=== PATIENT | female | born 1990 | race Caucasian/White ===

== ENCOUNTER 2023-03-07 20:27 | Inpatient (IN) | payer MEDICAID, SELFPAY ==
[2023-03-07 20:31] VITALS: BP 134/98; PULSE 107; RESP 18; TEMP 36.9; O2SAT 98; BMI 22.1
[2023-03-07 21:31] VITALS: BP 115/84; PULSE 74; RESP 16; TEMP 36.7; O2SAT 100
--- NOTE | 2023-03-07 21:42 | HP.PCM.HOS_ITS ---
HPI - General General Date of Admission: 03/07/23 Date of Service: 03/07/23 Chief Complaint: EtOH abuse, detox request. HPI Narrative The patient is a 32 y/o F w/ PMHx: Alcoholic Cirrhosis w/ chronically elevated LFTs/Hyperbilirubinemia/thrombocytopenia, Chronic anemia, Tobacco use who presents to the [facility] on 03/07/23 w/ noted ongoing persistent alcohol abuse with replapse over the last 6 months following a relationship breakup with impetus this evening for presentation for alcohol withdrawal treatment following last EtOH intake approximately 1 hour prior to initial ED arrival with no marked alcohol withdrawal symptoms upon initial ED arrival but significant interest in obtaining sober status. Initial work-up in the ED included T98.5, heart rate 107, BP 130/98, respiratory rate 18, 98% on room air, CBC with WC 6.2, hemoglobin 11.2, platelet 122 without marked shift, coags with INR 1.3, PT 15.9, CMP with sodium 135, potassium 2.7, chloride 97, BUN/creatinine 5/1.27, glucose 107, T. bili 4.90, D bili 3.74, AST/ALT 301/93, alk phos 284, urinalysis with no evidence of UTI, negative testing, UDS with positive benzodiazepines and cocaine, ethyl alcohol level 280. In the ED upon evaluation she notes onset of alcohol withdrawal symptoms including mild tremors and notes that she does have history of significant hallucinations and delirium when she withdrawals. [facility] Medical History (Updated 03/08/23 @ 01:[address] Martha Birch MD) Alcohol abuse Alcoholic cirrhosis Chronic anemia Hyperbilirubinemia Polysubstance abuse Thrombocytopenia Tobacco use Transaminitis Home Medications albuterol 90 mcg/actuation aerosol inhaler 90 mcg inhalation Q6H PRN sob 03/07/23 [History Last Taken Unknown] carvedilol 3.125 mg tablet 3.125 mg PO Q12H 03/07/23 [History Last Taken Unknown] cephalexin 500 mg capsule 500 mg PO Q8H 03/07/23 [History Last Taken Unknown] chlordiazepoxide HCl 10 mg capsule 10 mg PO Q8H 03/07/23 [History Last Taken Unknown] diclofenac sodium 75 mg tablet,delayed release 75 mg PO Q12H 03/07/23 [History Last Taken Unknown] folic acid 1 mg tablet 1 mg feeding tube DAILY 03/07/23 [History Last Taken Unknown] furosemide 40 mg tablet 60 mg PO DAILY 03/07/23 [History Last Taken Unknown] gabapentin 400 mg capsule 400 mg PO Q8H 03/07/23 [History Last Taken Unknown] hydroxyzine HCl 25 mg tablet 25 mg PO Q12H PRN 03/07/23 [History Last Taken Unknown] lactulose 10 gram/15 mL oral solution 15 ml PO DAILY 03/07/23 [History Last Taken Unknown] lidocaine 4 % topical patch (Lidocaine Pain Relief) 2 patch topical Q24H 03/07/23 [History Last Taken Unknown] nicotine 21 mg/24 hr daily transdermal patch 1 patch transdermal Q24H 03/07/23 [History Last Taken Unknown] oxycodone-acetaminophen 5 mg-325 mg tablet 1 tab PO Q6H PRN pain 03/07/23 [History Last Taken Unknown] potassium chloride 20 mEq tablet,extended release(part/cryst) 20 meq PO DAILY 03/07/23 [History Last Taken Unknown] rifaximin 550 mg tablet (Xifaxan) 550 mg PO DAILY 03/07/23 [History Last Taken Unknown] sodium bicarbonate 650 mg tablet 650 mg PO BID 03/07/23 [History Last Taken Unknown] spironolactone 100 mg tablet 150 mg PO DAILY 03/07/23 [History Last Taken Unknown] Allergy/AdvReac Type Severity Reaction Status Date / Time No Known Allergies Allergy Verified 03/07/23 20:31 Family History (Updated 03/08/23 @ 01:[address] Martha Birch MD) Mother CVA (cerebral vascular accident) Heart disease Hypertension other (She does not know her father nor her paternal family history.) Surgical History (Updated 03/08/23 @ 01:[address] Martha Birch MD) No history of previous surgery Social History (Updated 03/08/23 @ 01:[address] Martha Birch MD) household members: other details: Lives in her own home with her young daughter. Smoking Status: Current every day smoker tobacco type: cigarettes Smoking packs per day: 1 Smoking cigarettes per day: 20.0 alcohol intake: current alcohol intake frequency: 3 or more drinks per day details: 1 bottle ($30) [place] apple daily. substance use type: other details: UDS w/ + BZD and cocaine. ROS ROS Narrative Admission Review of Systems: CONSTITUTIONAL: No weight loss, fever, chills, + weakness or fatigue. HEENT: Eyes: No visual loss, blurred vision, double vision or yellow sclerae. Ears, Nose, Throat: No hearing loss, sneezing, congestion, runny nose or sore throat. SKIN: No rash or itching, lesions, wounds. CARDIOVASCULAR: No chest pain, chest pressure or chest discomfort, palpitations, edema, orthopnea, syncopal events. RESPIRATORY: No shortness of breath, cough or sputum, wheezing, hemoptysis. GASTROINTESTINAL: + anorexia, No nausea, vomiting or diarrhea, abdominal pain, melena, BRBPR. GENITOURINARY: No dysuria, frequency, urgency or retention. NEUROLOGICAL: + Mild tremors. No headache, dizziness, syncope, paralysis, ataxia, numbness or tingling in the extremities, focal weakness, change in bowel or bladder control, seizure. MUSCULOSKELETAL: + muscle, back pain, joint pain or stiffness. HEMATOLOGIC: + anemia. No bleeding or bruising. LYMPHATICS: No enlarged nodes. No history of splenectomy. PSYCHIATRIC: No history of depression or anxiety. ENDOCRINOLOGIC: No reports of sweating, cold or heat intolerance. No polyuria or polydipsia. ALLERGIES: No history of asthma, hives, eczema or rhinitis. Vital Signs Vital Signs Vital Signs: 03/07/23 20:31 03/07/23 21:31 Temperature 98.5 F Temperature Source Oral Pulse Rate 107 H Respiratory Rate 18 Blood Pressure 134/98 H 115/84 H Blood Pressure Mean 110 94 Pulse Ox 98 Oxygen Delivery Method Room Air Weight Weight: 129 lb 6.4 oz Body Mass Index (BMI) 22.1 Physical Exam Narrative Physical Examination: General: Awake, alert, oriented to self, place and recent events, cooperative, fatigued appearing and mildly restless, notes onset of some withdrawal symptoms with tremors. Skin: Normal color, normal turgor, no icterus, no cyanosis. HEENT: AT/NC, EOMI, PERRLA, dry MM, poor dentition, no carotid bruits or JVD noted. Lungs: Diminished, greater bases, appropriate effort, no rales, ronchi or wheezing. Heart: Tachycardic with regular rhythm; no gallop, rub audible. Abdomen: Soft, NTTP, ND, hyperactive BS, + HM. Extremities: No cyanosis, clubbing, or edema. Neurological: Patient awake, alert, oriented as noted, cognitive function appears intact but she is very fatigued; pupils equally reactive to light and accommodation, cranial nerves grossly normal, moving all 4 extremities, no focal deficits, strength moderately global decrease can Augusto to acute complaints, mild tremor evident. Psychiatric: Affect appears flat, fatigued, restless, no acute evidence of depressive or anxiety feelings. Results Lab / Micro Data 03/07/23 21:57 03/07/23 21:57 Assessment & Plan Assessment/Plan (1) Admitted to alcohol detoxification center: PLAN: Plan The patient is a 32 y/o F w/ PMHx: Alcoholic Cirrhosis w/ chronically elevated LFTs/Hyperbilirubinemia/thrombocytopenia, Chronic anemia, Tobacco use who presents to the [facility] on 03/07/23 w/ noted ongoing persistent alcohol abuse with r eplapse over the last 6 months following a relationship breakup with impetus this evening for presentation for alcohol withdrawal treatment following last EtOH intake approximately 1 hour prior to initial ED arrival with no marked alcohol withdrawal symptoms at this time but significant interest in obtaining sober status. #1. EtOH abuse with associated alcoholic cirrhosis with request for deto xification with impending withdrawal: Will admit to medical surgical floor, routine labs obtained in the ED upon presentation and pending upon requested evaluation of patient. As long as testing is negative and given interest in sobriety, will initiate and continue on protocol with taper course of Phenobarbital, as needed gabapentin, Catapres, Bentyl, Vistaril, IV fluids, IV antiemetics, Tylenol as needed for pain. Will consult Case management for assistance for transition to next level of rehabilitation care. Mag, phos pending. Maintain on CIWA protocol concurrently. #2. Chronic alcoholic cirrhosis with chronic transaminitis, hyperbilirubinemia, thrombocytopenia w/ alcoholic hepatitis: CMP upon presentation with T. bili 4.90, D bili 3.74, AST/ALT 301/93, alk phos 284, no specific comparison but patient reported elevations chronically, CBC with platelet count 122 with uncle ar exact baseline but likely chronic component, will repeat CMP in a.m. to ensure not rising. We will continue patient on spironolactone, sodium bicarb, rifaximin, Lasix and lactulose regimen with close continued follow-up with her gastroenterology team at [facility]. #3. Acute renal insufficiency versus CKD stage III, unclear subtype or chronicity: Admission BUN/creatinine 5/.27, no comparison, GFR 52, do suspect insufficiency given recent alcohol abuse ongoing, will judiciously hydrate, repeat CMP in AM. #4. Anemia, macrocytic, unclear chronicity but suspect chronic: Admission he moglobin 11.2, MCV 100.6, unclear exact baseline, likely chronic, vitamin 12 and folate acid levels requested and will maintain on supplementation. #5. Hypokalemia: Admission K+ 2.7, magnesium level requested, supplementation given, repeat level in AM. #6. Tobacco Abuse: Encouraged cessation, inpatient consultation per RT, NR if desired. #7. Evidence of polysubstance abuse: UDS with positive benzodiazepines as well as cocaine, suspect patient is using much more than she is relaying, will encourage clean status. #8. DVT prophylaxis: Low risk for current type of presentation Charges/Coding Visit Charges Inpatient E&M: 10111 Init Hosp L3
[2023-03-07 21:47] LABS: Mucous, Urine 0 SEEN /hpf (<or=2+); Red Blood Cells-Urine 0 SEEN /hpf (0-5)
[2023-03-07 21:51] LABS: Color, Urine Yellow (Yellow); Glucose, Dipstick Normal (Normal); Ketone-Dipstick Negative (Negative); Leukocyte Esterase-Dipstick 25 /ul (Negative); Nitrite-Dipstick Negative (Negative); Occult Blood-Urine 10 /ul (Negative); Protein-Dipstick 15 mg/dl (Negative); Urine Clarity Clear (Clear); Urine Urobilinogen 4 mg/dl (Normal); Urine pH 6.5 (5.0 - 8.0)
[2023-03-07 21:55] LABS: Internal QC Validated? YES +Cl - CLEAR BKGD; Pregnancy, Urine Negative Negative; Urine Bilirubin Dipstick 3 mg/dL (Negative)
[2023-03-07 21:59] LABS: Bacteria RARE /hpf (None Seen); Squamous Epithelial Cells - UA 0-5 SEEN /hpf (5-10); White Blood Cells 0 SEEN /hpf (0-5)
[2023-03-07 22:05] LABS: Absolute Lymphocyte Count 1.56 X10^3/uL (0.83-4.51); Absolute Neutrophil Count 3.8 X10^3/uL (2.0-7.7); Basophil# 0.05 X10^3/uL; Basophil% 0.8 % (0-1); Eosinophil# 0.05 X10^3/uL; Eosinophils% 0.8 % (0-5); Hematocrit 34.1 % (37-47); Hemoglobin 11.2 g/dL (12.0-15.0); Lymphocyte # 1.56 X10^3/ul (0.83-4.51); Mean Corp Hgb Conc 32.8 g/dL (32-36); Mean Corpuscular Volume 100.6 fL (81-99); Mean Platelet Vol. 10.2 fl (6.2-12.0); Monocyte# 0.76 X10^3/uL; Monocyte% 12.2 % (0-10); NRBC Flagged by Analyzer 0 % (0-5); Neutrophil # 3.79 X10^3/uL (2.7-7.7); Neutrophil % 60.9 % (47-70); Platelet Count 122 K/mm3 (150-450); RBC Distribution Width CV 12.3 % (11.6-14.6); RBC Distribution Width SD 45.2 fl (35.1-43.9); Red Blood Count 3.39 M/mm3 (4.2-5.4); White Blood Count 6.2 K/mm3 (4.4-11.0)
[2023-03-07 22:14] LABS: International Normalized Ratio 1.3; Prothrombin Time (Protime)PT. 15.9 SECONDS (11.7-14.9)
[2023-03-07 22:32] VITALS: BP 106/77; PULSE 84; RESP 16; TEMP 36.8; O2SAT 100
[2023-03-07 22:32] LABS: Anion Gap 12 (5-15); BUN 5 mg/dL (7-18); BUN/Creat Ratio 3.9 RATIO (10-20); Calcium,Total 9.3 mg/dL (8.5-10.1); Chloride 97 mmol/L (98-107); Creatinine, Serum 1.27 mg/dL (0.55-1.02); EST Glomerular Filtration Rate 52 mL/min (>60); Est Glom Filt Rate - Afr Amer 63 mL/min (>60); Estimated Creatinine Clearance 55.42 ml/min; Glucose 107 mg/dL (74-106); Magnesium 1.7 mg/dL (1.6-2.6); Potassium 2.7 mmol/L (3.5-5.1); Sodium Level 135 mmol/L (136-145)
[2023-03-07 22:36] LABS: Amphetamine Urine VISTA NEGATIVE (<1000 ng/mL); Barbiturate Urine VISTA NEGATIVE (< 200 ng/mL); Vista UDS pH Range 6
[2023-03-07 22:37] LABS: Benzodiazepine Urine VISTA POSITIVE (< 200 ng/mL); Cocaine Urine VISTA POSITIVE (< 300 ng/mL); Ecstacy Urine VISTA NEGATIVE (< 500 ng/mL); Methadone Urine VISTA NEGATIVE (< 300 ng/mL); PCP Urine VISTA NEGATIVE (< 25 ng/mL); THC Urine VISTA NEGATIVE (< 50 ng/mL)
--- NOTE | 2023-03-07 22:38 | EDS_ITS ---
HPI History of Present Illness Chief Complaint: ETOH Intox Informant: patient Narrative Narrative: Presents for alcohol detox. Diagnosed with alcoholic cirrhosis 18 months ago. Previously seen by GI through [facility] She is on rifaximin and lactulose, furosemide spironolactone. Still drinking liquor up 1/5 bottle per day. Wakes up with tremors. She has had withdrawal seizures in the past. Last drink was a few hours ago. Denies recreational drug use. She has the Nexplanon therefore abnormal menstrual periods. Denies any current nausea or vomiting. Denies abdominal pain. Denies urinary symptoms. [facility] Medical History Alcoholic hepatitis with ascites Nicotine dependence Home Medications albuterol 90 mcg/actuation aerosol inhaler 90 mcg inhalation Q6H PRN sob 03/07/23 [History Last Taken Unknown] carvedilol 3.125 mg tablet 3.125 mg PO Q12H 03/07/23 [History Last Taken Unknown] cephalexin 500 mg capsule 500 mg PO Q8H 03/07/23 [History Last Taken Unknown] chlordiazepoxide HCl 10 mg capsule 10 mg PO Q8H 03/07/23 [History Last Taken Unknown] diclofenac sodium 75 mg tablet,delayed release 75 mg PO Q12H 03/07/23 [History Last Taken Unknown] folic acid 1 mg tablet 1 mg feeding tube DAILY 03/07/23 [History Last Taken Unknown] furosemide 40 mg tablet 60 mg PO DAILY 03/07/23 [History Last Taken Unknown] gabapentin 400 mg capsule 400 mg PO Q8H 03/07/23 [History Last Taken Unknown] hydroxyzine HCl 25 mg tablet 25 mg PO Q12H PRN 03/07/23 [History Last Taken Unknown] lactulose 10 gram/15 mL oral solution 15 ml PO DAILY 03/07/23 [History Last Taken Unknown] lidocaine 4 % topical patch (Lidocaine Pain Relief) 2 patch topical Q24H 03/07/23 [History Last Taken Unknown] nicotine 21 mg/24 hr daily transdermal patch 1 patch transdermal Q24H 03/07/23 [History Last Taken Unknown] oxycodone-acetaminophen 5 mg-325 mg tablet 1 tab PO Q6H PRN pain 03/07/23 [His tory Last Taken Unknown] potassium chloride 20 mEq tablet,extended release(part/cryst) 20 meq PO DAILY 03/07/23 [History Last Taken Unknown] rifaximin 550 mg tablet (Xifaxan) 550 mg PO DAILY 03/07/23 [History Last Taken Unknown] sodium bicarbonate 650 mg tablet 650 mg PO BID 03/07/23 [History Last Taken Unknown] spironolactone 100 mg tablet 150 mg PO DAILY 03/07/23 [History Last Taken Unknown] Allergy/AdvReac Type Severity Reaction Status Date / Time No Known Allergies Allergy Verified 03/07/23 20:31 Family History Mother CVA (cerebral vascular accident) Social History Smoking Status: Former smoker ROS ROS ED Constitutional Constitutional ED: Denies chills, fever(s) or sweats Eyes Eyes: Denies change in vision ENT ENT ED: Denies dysphagia or sore throat Cardiovascular Cardiovascular: Denies chest pain, leg edema, palpitations or racing heartbeat Respiratory/Chest Respiratory/Chest: Denies cough, dyspnea or dyspnea on exertion Gastrointestinal Gastrointestinal: Denies abdominal pain, diarrhea, nausea or vomiting Genitourinary Genitourinary ED: Denies dysuria, hematuria or urinary frequency Musculoskeletal Musculoskeletal: Denies back pain, extremity pain or neck pain Integumentary Denies rash or wounds Neurologic Neurologic: Denies headache(s), paresthesias or weakness EXAM Physical Exam Const Vital Signs: 03/07/23 20:31 03/07/23 21:31 Temperature 98.5 F 98.1 F Temperature Source Oral Temporal Pulse Rate 107 H 74 Respiratory Rate 18 16 Blood Pressure 134/98 H 115/84 H Blood Pressure Mean 110 94 Pulse Ox 98 100 Oxygen Delivery Method Room Air Room Air Positive well nourished and well developed Constitutional Narrative: Slight slurring of speech on exam, however cooperative and answering questions. General Appearance ED: well developed and NAD HEENT Reports moist mucous membranes normocephalic and atraumatic Eyes PERRL and EOMs intact bilaterally General Eye ED: Yes normal appearance of both eyes and scleral icterus Neck no lymphadenopathy and supple General: Negative for tenderness Chest Wall Chest: Negative for tenderness Resp normal respiratory effort and normal air movement Effort and Inspection: symmetric chest movement; Negative for respiratory distress Cardio regular rate, regular rhythm and no murmurs Peripheral Pulses: pulses 2+ throughout GI normal to inspection, nondistended, normoactive bowel sounds and non-tender Palpation: Negative for guarding or rebound tenderness present Back/Spine no CVA tenderness and no thoracic nor lumbar tenderness Extremity normal to inspection General Extremety ED: Negative for edema or tenderness General Extremity: Negative for edema Neuro oriented x3 and no sensory deficits noted Sensorium / Orientation: awake and alert Skin no rashes or lesions noted and no wounds MDM MDM MDM Narrative Medical decision making narrative: Interventions / MDM: Differential diagnosis: Alcohol dependence, alcohol withdrawal, alcoholic cirrhosis Diagnosis considered but do not suspect: N/A My EKG interpretation: N/A Imaging independently reviewed and interpreted by myself: N/A External documents reviewed: N/A Test considered but not ordered:N/A ED course: Vital stable last drink a few hours ago. Medical clearance labs ordered. hCG returned negative. Discussed with hospitalist Dr. Birch for admission. Lab study with potassium 2.7. Oral replacement ordered. Platelets 122. Creatinine 1.26. Magnesium is 1.7. Toxicology positive benzodiazepine and cocaine. Alcohol at 280. Elevated liver enzymes with bilirubin. Re-evaluation: stable Disposition discussed with patient/family/significant other: Patient Case discussed with consulting clinician: Hospitalist This note was generated with [employer] dictation software. It may contain incorrect words, spelling, and punctuation that were not noted in checking the note before signing. Discharge Plan Triage Chief Complaint: ETOH Intox ED Provider: Crispin Hernadez Dx/Rx/DC Orders Clinical Impression: Alcohol dependence, Transaminitis, Alcoholic hepatitis, Alcoholic cirrhosis, Thrombocytopenia, Hypokalemia Primary Care Provider: Care Physician,No Primary Disposition Disposition: Acute Care Hospital [facility]
[2023-03-07 22:39] LABS: AST(SGOT) 301 U/L (15-37); Alanine Aminotransfer ALT/SGPT 93 U/L (13-56); Albumin, Serum 3.4 g/dL (3.2-5.0); Alkaline Phosphatase 284 U/L (45-117); Bilirubin, Direct 3.74 mg/dL (0.00-0.30); Globulin 5.1 g/dL (2.2-4.2); Phosphorus 3.2 mg/dL (2.5-4.9); Protein, Total 8.5 g/dL (6.4-8.2)
[2023-03-07] MEDS: Potassium Chloride Oral Tablet 20 MEQ 40 MEQ PO (22:44)
[2023-03-08] VITALS (8 sets, daily range): BP systolic 88–129; BP diastolic 62–83; PULSE 75–111; RESP 16–18; TEMP 36.8–37.4; O2SAT 95–99; BMI 21.8
[2023-03-08] MEDS: Phenobarbital 32.4 MG Tablet 64.8 MG PO ×6 (01:00→20:21)
[2023-03-08] MEDS: Lactated Ringers 1,000 ML 125 ML IV (01:00)
[2023-03-08] MEDS: hydrOXYzine PAM 25 MG Capsule 50 MG PO ×4 (01:01→16:14)
[2023-03-08] MEDS: traZODone 100 MG Tablet PO (01:01)
[2023-03-08] MEDS: Ondansetron 8 MG Tablet PO ×2 (01:12→09:23)
[2023-03-08] MEDS: Gabapentin 400 MG Capsule PO ×3 (05:25→20:21)
[2023-03-08 06:28] LABS: ALB/GLOB Ratio 0.7 RATIO (0.9-2.4); AST(SGOT) 310 U/L (15-37); Alanine Aminotransfer ALT/SGPT 92 U/L (13-56); Albumin, Serum 3.3 g/dL (3.2-5.0); Alkaline Phosphatase 282 U/L (45-117); Anion Gap 8 (5-15); BUN 5 mg/dL (7-18); BUN/Creat Ratio 4.4 RATIO (10-20); Calcium,Total 8.9 mg/dL (8.5-10.1); Chloride 100 mmol/L (98-107); Creatinine, Serum 1.13 mg/dL (0.55-1.02); EST Glomerular Filtration Rate 59 mL/min (>60); Est Glom Filt Rate - Afr Amer 72 mL/min (>60); Estimated Creatinine Clearance 61.72 ml/min; Glucose 86 mg/dL (74-106); Potassium 3.1 mmol/L (3.5-5.1); Protein, Total 8.3 g/dL (6.4-8.2); Sodium Level 136 mmol/L (136-145)
[2023-03-08 08:30] LABS: Vitamin B12 431 pg/mL (211-911)
[2023-03-08] MEDS: Lidocaine 5% Patch 2 PATCH TOPICAL (09:21)
[2023-03-08] MEDS: Lactulose 20 GM/30 ML UDC 10 GM PO (09:22)
[2023-03-08] MEDS: Dicyclomine 10 MG Capsule 20 MG PO ×2 (09:22→16:14)
[2023-03-08] MEDS: Ibuprofen 600 MG Tablet PO (09:23)
[2023-03-08] MEDS: Thiamine Hydrochloride 100 MG Tablet PO (09:23)
[2023-03-08] MEDS: Potassium Chloride Oral Tablet 20 MEQ PO (09:23)
[2023-03-08] MEDS: Sodium Bicarbonate 650 MG Tablet PO ×2 (09:23→20:21)
[2023-03-08] MEDS: Folic Acid 1 MG Tablet PO (09:23)
[2023-03-08] MEDS: 0.9% Saline Lock 10 ML Syringe IV (09:23)
[2023-03-08] MEDS: Spironolactone 50 MG Tablet 150 MG PO (09:24)
[2023-03-08] MEDS: rifAXIMin 550 MG Tablet PO (09:24)
[2023-03-08] MEDS: Diclofenac 75 MG Tablet PO ×2 (09:24→20:21)
--- NOTE | 2023-03-08 10:48 | ADDICTION ---
This justowriter operator met with PT to conduct ASAM, MSE, AUDIT assessments and to plan for d/c. PT A+Ox4 and participated actively. All assessments completed and placed in PT's chart. PT plans to f/u with [facility] for outpatient treatment services. PT did not indicate a need for transportation post d/c from [facility].
--- NOTE | 2023-03-08 14:38 | PN_ITS ---
Subjective Subjective Patient seen and examined. She complained of feeling generally unwell. She denied any fever, chills, cough, chest pain, palpitations, dizziness, nausea, vomiting or any other symptoms. REview of systems is otherwise negative. Objective Data Objective Data Vital Signs: Vital Signs Temp Pulse Resp BP Pulse Ox O2 Del Method 98.4 F 101 H 18 99/65 98 Room Air 03/08/23 12:05 03/08/23 12:05 03/08/23 12:05 03/08/23 12:05 03/08/23 12:05 03/08/23 12:05 Oxygen Delivery Method Room Air Weight: 127 lb 13.89 oz Body Mass Index (BMI) 21.8 Intake & Output: Intake and Output for Last 24 Hours 03/06/23 03/07/23 03/08/23 23:59 23:59 23:59 Intake Total 1000 / 1000 Balance 1000 / 1000 Lab / Micro Data 03/07/23 21:57 03/08/23 05:40 Labs: Laboratory Results - last 24 hr 03/07/23 21:42: Urine Color Yellow, Urine Clarity Clear, Urine pH 6.5, Ur Specific [place] 1.010, Urine Protein 15 H, Urine Glucose (UA) Normal, Urine Ketones Negative, Urine Occult Blood 10 H, Urine Nitrite Negative, Urine B ilirubin 3 H, Urine Urobilinogen 4 H, Ur Leukocyte Esterase 25 H, Urine RBC 0 SEEN, Urine WBC 0 SEEN, Ur Squamous Epith Cells 0-5 SEEN, Urine Bacteria RARE, Urine Mucus 0 SEEN, Urine Test Negative, Urine Opiates Screen NEGATIVE, Urine Methadone Screen NEGATIVE, Ur Barbiturates Screen NEGATIVE, Ur Phencyclidine Scrn NEGATIVE, Ur Amphetamines Screen NEGATIVE, MDMA (Ecstasy) Screen NEGATIVE, U Benzodiazepines Scrn POSITIVE H, Urine Cocaine Screen POSITIVE H, U Cannabinoids Screen NEGATIVE, Ur Drug Screen Comment 03/07/23 21:57: WBC 6.2, RBC 3.39 L, Hgb 11.2 L, Hct 34.1 L, MCV 100.6 H, MCH 33.0 H, MCHC 32.8, RDW Std Deviation 45.2 H, RDW Coeff of [place]andana 12.3, Plt Count 122 L, MPV 10.2, Immature Gran % (Auto) 0.300, Neut % (Auto) 60.9, Lymph % (Auto) 25.0, [place] % (Auto) 12.2 H, Eos % (Auto) 0.8, Baso % (Auto) 0.8, Absolute Neuts (auto) 3.8, Absolute Lymphs (auto) 1.56, Nucleated RBC % 0, PT 15.9 H, INR 1.3, Sodium 135 L, Potassium 2.7 L*, Chloride 97 L, Carbon Dioxide 26.0, Anion Gap 12, BUN 5 L, Creatinine 1.27 H, Estim Creat Clear Calc 55.42, Est GFR (MDRD) Af Amer 63, Est GFR (MDRD) Non-Af 52 L, BUN/Creatinine Ratio 3.9 L, Glucose 107 H, Calcium 9.3, Phosphorus 3.2, Magnesium 1.7, Total Bilirubin 4.90 H, Direct Bilirubin 3.74 H, AST 301 H, ALT 93 H, Alkaline Phosphatase 284 H, Total Protein 8.5 H, Albumin 3.4, Globulin 5.1 H, Folate 10.60, Ethyl Alcohol 280.0 03/08/23 05:40: Sodium 136, Potassium 3.1 L, Chloride 100, Carbon Dioxide 28.0, Anion Gap 8, BUN 5 L, Creatinine 1.13 H, Estim Creat Clear Calc 61.72, Est GFR (MDRD) Af Amer 72, Est GFR (MDRD) Non-Af 59 L, BUN/Creatinine Ratio 4.4 L, Glucose 86, Calcium 8.9, Total Bilirubin 5.00 H, AST 310 H, ALT 92 H, Alkaline Phosphatase 282 H, Total Protein 8.3 H, Albumin 3.3, Globulin 5.0 H, Albumin/Globulin Ratio 0.7 L, Vitamin B12 431 Physical Exam Const alert, oriented x3 and no apparent distress General Appearance: cooperative HEENT normocephalic, head/scalp atraumatic, moist oral mucous membranes and oropharynx normal Eyes PERRL and EOMs intact bilaterally Neck no lymphadenopathy and supple Lymph Lymphatic: no lymphadenopathy noted Resp normal respiratory effort, normal air movement and clear to auscultation bilaterally Cardio regular rate, regular rhythm, S1 normal heart sound, S2 normal heart sound and no murmurs GI GI Narrative: abdomen soft, nontender, no organomegaly. Extremity normal capillary refill, no clubbing, cyanosis or edema and no calf tenderness Skin Skin Narrative: mild jaundice. Neuro CN's II-XII intact bilaterally, no focal motor deficits and no sensory deficits noted Motor Exam: strength 5/5 throughout and general weakness Psych thought process normal, cooperative and affect normal Appearance: appropriate Assessment & Plan Assessment/Plan (1) Alcohol withdrawal: PLAN: Plan #Acute alcohol withdrawal * on alcohol withdrawal protocol with phenobarbital * on adjunctive meds for symptomatic relief * thiamine, folic acid and multivite * monitor CIWA score * #Cirrhosis due to alcohol use disorder * says she used to require frequent paracentesis but has not helped with the abdomen for quite a while. * On spironolactone, rifaximin and Lasix. On lactulose. * #Transaminitis due to alcoholic liver cirrhosis * Total bilirubin is 5 with direct bilirubin of 3.74, AST of 310 and ALT of 92. ALP is 282. * Will trend liver enzymes and if it worsens, will consult gastroenterology. * #Hypokalemia: potassium today is 3.1. Will replace and trend. #Nicotine dependence: Counseled to quit. Nicotine patch 21 mg daily. #Polysubstance abuse: Urine tox positive for benzodiazepines and cocaine. Counseled to quit. DVT prophylaxis: low risk, encourage to ambulate. Charges/Coding Visit Charges Inpatient E&M: 48935 Subs Hosp L2
[2023-03-08] MEDS: Carvedilol 3.125 MG TABLET PO (16:14)
[2023-03-09] VITALS (7 sets, daily range): BP systolic 84–104; BP diastolic 58–81; PULSE 77–99; RESP 16–18; TEMP 36.1–36.8; O2SAT 95–99
[2023-03-09] MEDS: Gabapentin 400 MG Capsule PO ×2 (05:18→23:19)
[2023-03-09] MEDS: Phenobarbital 32.4 MG Tablet 64.8 MG PO ×5 (05:18→21:15)
[2023-03-09 07:38] LABS: Absolute Neutrophil Count 2.1 X10^3/uL (2.0-7.7); Basophil# 0.04 X10^3/uL; Eosinophils% 2.5 % (0-5); Hematocrit 29.8 % (37-47); Hemoglobin 9.5 g/dL (12.0-15.0); Lymphocyte % 30.5 % (19-41); Mean Corp Hgb Conc 31.9 g/dL (32-36); Mean Corpuscular Hgb 33.3 pg (27.0-32.0); Mean Corpuscular Volume 104.6 fL (81-99); Mean Platelet Vol. 10.4 fl (6.2-12.0); Monocyte% 12.7 % (0-10); NRBC Flagged by Analyzer 0 % (0-5); Neutrophil # 2.08 X10^3/uL (2.7-7.7); Platelet Count 101 K/mm3 (150-450); RBC Distribution Width CV 12.2 % (11.6-14.6); RBC Distribution Width SD 46.3 fl (35.1-43.9); Red Blood Count 2.85 M/mm3 (4.2-5.4); White Blood Count 3.9 K/mm3 (4.4-11.0)
[2023-03-09 07:52] LABS: ALB/GLOB Ratio 0.6 RATIO (0.9-2.4); AST(SGOT) 146 U/L (15-37); Alanine Aminotransfer ALT/SGPT 60 U/L (13-56); Albumin, Serum 2.5 g/dL (3.2-5.0); Alkaline Phosphatase 227 U/L (45-117); Anion Gap 5 (5-15); BUN 13 mg/dL (7-18); Calcium,Total 8.5 mg/dL (8.5-10.1); Chloride 100 mmol/L (98-107); EST Glomerular Filtration Rate 51 mL/min (>60); Est Glom Filt Rate - Afr Amer 61 mL/min (>60); Estimated Creatinine Clearance 53.65 ml/min; Glucose 102 mg/dL (74-106); Potassium 3.5 mmol/L (3.5-5.1); Protein, Total 6.5 g/dL (6.4-8.2); Sodium Level 132 mmol/L (136-145)
--- NOTE | 2023-03-09 09:35 | CASEMGMT ---
Social Work SW met w/pt as it was relayed to SW that pt has an unsupervised child at home. SW introduced self to pt. SW inquired about child at home. Pt states she has a 13 year old daughter, and she is home with pt's mother and her daughter's other grandma. So daughter has two grandmas staying w/her at present. We spoke about having a 13 year old daughter, support given. Pt states thinks she may be going home today. SW remains available should any other needs arise. [facility]
[2023-03-09] MEDS: Thiamine Hydrochloride 100 MG Tablet PO (09:48)
[2023-03-09] MEDS: Folic Acid 1 MG Tablet PO (09:48)
[2023-03-09] MEDS: Lactulose 20 GM/30 ML UDC 10 GM PO (09:48)
[2023-03-09] MEDS: Potassium Chloride Oral Tablet 20 MEQ PO (09:49)
[2023-03-09] MEDS: Diclofenac 75 MG Tablet PO ×2 (09:49→21:17)
[2023-03-09] MEDS: rifAXIMin 550 MG Tablet PO (09:49)
[2023-03-09] MEDS: Sodium Bicarbonate 650 MG Tablet PO ×2 (09:49→21:16)
[2023-03-09] MEDS: Lidocaine 5% Patch 2 PATCH TOPICAL (09:50)
--- NOTE | 2023-03-09 12:13 | PN_ITS ---
Subjective Subjective Patient seen and examined. She had no active complaints and had an uneventful night. Review of systems otherwise negative. Objective Data Objective Data Vital Signs: Vital Signs Temp Pulse Resp BP Pulse Ox O2 Del Method 97 F L 85 16 85/63 L 96 Room Air 03/09/23 08:10 03/09/23 08:10 03/09/23 08:10 03/09/23 08:10 03/09/23 08:10 03/09/23 08:10 Oxygen Delivery Method Room Air Weight: 127 lb 13.89 oz Body Mass Index (BMI) 21.8 Intake & Output: Intake and Output for Last 24 Hours 03/07/23 03/08/23 03/09/23 23:59 23:59 23:59 Intake Total 1000 / 1000 Balance 1000 / 1000 Lab / Micro Data 03/09/23 07:00 03/09/23 07:00 Labs: Laboratory Results - last 24 hr 03/09/23 07:00: WBC 3.9 L, RBC 2.85 L, Hgb 9.5 L, Hct 29.8 L, MCV 104.6 H, MCH 33.3 H, MCHC 31.9 L, RDW Std Deviation 46.3 H, RDW Coeff of Vandana 12.2, Plt Count 101 L, MPV 10.4, Immature Gran % (Auto) 0.300, Neut % (Auto) 53.0, Lymph % (Auto) 30.5, Day % (Auto) 12.7 H, Eos % (Auto) 2.5, Baso % (Auto) 1.0, Absolute Neuts (auto) 2.1, Absolute Lymphs (auto) 1.20, Nucleated RBC % 0, Sodium 132 L, Potassium 3.5, Chloride 100, Carbon Dioxide 27.0, Anion Gap 5, BUN 13, Creatinine 1.30 H, Estim Creat Clear Calc 53.65, Est GFR (MDRD) Af Amer 61, Est GFR (MDRD) Non-Af 51 L, BUN/Creatinine Ratio 10.0, Glucose 102, Calcium 8.5, Total Bilirubin 4.20 H, AST 146 H, ALT 60 H, Alkaline Phosphatase 227 H, Total Protein 6.5, Albumin 2.5 L, Globulin 4.0, Albumin/Globulin Ratio 0.6 L Physical Exam Const alert, oriented x3 and no apparent distress General Appearance: cooperative HEENT normocephalic, head/scalp atraumatic, moist oral mucous membranes and oropharynx normal Eyes PERRL and EOMs intact bilaterally Neck no lymphadenopathy and supple Lymph Lymphatic: no lymphadenopathy noted Resp normal respiratory effort, normal air movement and clear to auscultation bilaterally Cardio regular rate, regular rhythm, S1 normal heart sound, S2 normal heart sound and no murmurs GI GI Narrative: abdomen soft, nontender, no organomegaly. Extremity normal capillary refill, no clubbing, cyanosis or edema and no calf tenderness Skin Skin Narrative: mild jaundice. Neuro CN's II-XII intact bilaterally, no focal motor deficits and no sensory deficits noted Motor Exam: strength 5/5 throughout and general weakness Psych thought process normal, cooperative and affect normal Appearance: appropriate Assessment & Plan Assessment/Plan (1) Alcohol withdrawal: PLAN: Plan #Acute alcohol withdrawal * on alcohol withdrawal protocol with phenobarbital * on adjunctive meds for symptomatic relief * thiamine, folic acid and multivite * monitor CIWA score * #Cirrhosis due to alcohol use disorder * says she used to require frequent paracentesis but has not helped with the abdomen for quite a while. * On spironolactone, rifaximin and Lasix. On lactulose. 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 AST and ALT as well as ALP are trending downwards. * Likely due to alcohol liver disease. Will trend and monitor. * * #Hypokalemia: resolved. Potassium is 3.5. #Nicotine dependence: Counseled to quit. Nicotine patch 21 mg daily. #Polysubstance abuse: Urine tox positive for benzodiazepines and cocaine. Counseled to quit. DVT prophylaxis: low risk, encourage to ambulate. Charges/Coding Visit Charges Inpatient E&M: 64761 Subs Hosp L2
[2023-03-09] MEDS: Ibuprofen 600 MG Tablet PO (13:42)
[2023-03-09] MEDS: Dicyclomine 10 MG Capsule 20 MG PO ×2 (13:42→21:15)
[2023-03-09] MEDS: hydrOXYzine PAM 25 MG Capsule 50 MG PO (18:43)
[2023-03-10] MEDS: Phenobarbital 32.4 MG Tablet 64.8 MG PO ×3 (02:13→08:47)
[2023-03-10 02:15] VITALS: BP 89/58; PULSE 88; RESP 16; TEMP 36.8; O2SAT 99
[2023-03-10 04:15] VITALS: BP 93/61; PULSE 82; RESP 16; TEMP 36.1; O2SAT 100
[2023-03-10] MEDS: Gabapentin 400 MG Capsule PO (06:00)
[2023-03-10] MEDS: Ibuprofen 600 MG Tablet PO (06:16)
[2023-03-10] MEDS: Dicyclomine 10 MG Capsule 20 MG PO (06:16)
[2023-03-10 07:09] VITALS: O2SAT 94
[2023-03-10 07:58] LABS: Absolute Neutrophil Count 2.8 X10^3/uL (2.0-7.7); Basophil# 0.04 X10^3/uL; Basophil% 0.9 % (0-1); Eosinophil# 0.12 X10^3/uL; Eosinophils% 2.7 % (0-5); Hemoglobin 10.5 g/dL (12.0-15.0); Lymphocyte % 24.5 % (19-41); Mean Corp Hgb Conc 31.8 g/dL (32-36); Mean Corpuscular Hgb 33.7 pg (27.0-32.0); Mean Corpuscular Volume 105.8 fL (81-99); Mean Platelet Vol. 10.6 fl (6.2-12.0); Monocyte# 0.45 X10^3/uL; NRBC Flagged by Analyzer 0 % (0-5); Neutrophil # 2.76 X10^3/uL (2.7-7.7); Neutrophil % 61.5 % (47-70); Platelet Count 102 K/mm3 (150-450); RBC Distribution Width CV 12.5 % (11.6-14.6); RBC Distribution Width SD 48.5 fl (35.1-43.9); Red Blood Count 3.12 M/mm3 (4.2-5.4); White Blood Count 4.5 K/mm3 (4.4-11.0)
[2023-03-10 08:32] LABS: ALB/GLOB Ratio 0.6 RATIO (0.9-2.4); AST(SGOT) 93 U/L (15-37); Alanine Aminotransfer ALT/SGPT 49 U/L (13-56); Albumin, Serum 2.5 g/dL (3.2-5.0); Alkaline Phosphatase 216 U/L (45-117); Anion Gap 7 (5-15); BUN 16 mg/dL (7-18); BUN/Creat Ratio 13.3 RATIO (10-20); Calcium,Total 8.5 mg/dL (8.5-10.1); Chloride 101 mmol/L (98-107); EST Glomerular Filtration Rate 55 mL/min (>60); Est Glom Filt Rate - Afr Amer 67 mL/min (>60); Estimated Creatinine Clearance 58.12 ml/min; Globulin 4.2 g/dL (2.2-4.2); Glucose 84 mg/dL (74-106); Potassium 4.2 mmol/L (3.5-5.1); Protein, Total 6.7 g/dL (6.4-8.2); Sodium Level 132 mmol/L (136-145)
[2023-03-10] MEDS: Folic Acid 1 MG Tablet PO (08:47)
[2023-03-10] MEDS: Carvedilol 3.125 MG TABLET PO (08:48)
[2023-03-10] MEDS: Thiamine Hydrochloride 100 MG Tablet PO (08:48)
[2023-03-10] MEDS: Spironolactone 50 MG Tablet 150 MG PO (08:49)
[2023-03-10] MEDS: Furosemide 40 MG Tablet 60 MG PO (08:49)
[2023-03-10] MEDS: Lactulose 20 GM/30 ML UDC 10 GM PO (08:49)
[2023-03-10] MEDS: Sodium Bicarbonate 650 MG Tablet PO (08:50)
[2023-03-10] MEDS: Potassium Chloride Oral Tablet 20 MEQ PO (08:51)
[2023-03-10] MEDS: Lidocaine 5% Patch 2 PATCH TOPICAL (08:51)
[2023-03-10] MEDS: rifAXIMin 550 MG Tablet PO (08:52)
[2023-03-10 09:17] VITALS: BP 150/111; PULSE 48; RESP 18; TEMP 36.7; O2SAT 94
[2023-03-10 09:20] VITALS: PULSE 49
--- NOTE | 2023-03-10 10:01 | DS.PCM_ITS ---
Providers Date of Admission: 03/07/23 Date of Discharge: 03/10/23 Primary Care Physician: No Primary Care Phys Reason For Visit: ETOH ABUSE, DETOX Diagnosis Discharge Diagnosis (1) Alcohol withdrawal: Status: Acute Code(s): F10.939 - Alcohol use, unspecified with withdrawal, unspecified Plan #Acute alcohol withdrawal * on alcohol withdrawal protocol with phenobarbital * on adjunctive meds for symptomatic relief * thiamine, folic acid and multivite * monitor CIWA score * #Cirrhosis due to alcohol use disorder * says she used to require frequent paracentesis but has not helped with the abdomen for quite a while. * On spironolactone, rifaximin and Lasix. On lactulose. 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 AST and ALT as well as ALP are trending downwards. * Likely due to alcohol liver disease. Will trend and monitor. * * #Hypokalemia: resolved. Potassium is 3.5. #Nicotine dependence: Counseled to quit. Nicotine patch 21 mg daily. #Polysubstance abuse: Urine tox positive for benzodiazepines and cocaine. Counseled to quit. DVT prophylaxis: low risk, encourage to ambulate. Medications at Discharge Home Medications albuterol 90 mcg/actuation aerosol inhaler 90 mcg inhalation Q6H PRN sob 03/07/23 carvedilol 3.125 mg tablet 3.125 mg PO Q12H 03/07/23 cephalexin 500 mg capsule 500 mg PO Q8H 03/07/23 chlordiazepoxide HCl 10 mg capsule 10 mg PO Q8H 03/07/23 diclofenac sodium 75 mg tablet,delayed release 75 mg PO Q12H 03/07/23 folic acid 1 mg tablet 1 mg feeding tube DAILY 03/07/23 furosemide 40 mg tablet 60 mg PO DAILY 03/07/23 gabapentin 400 mg capsule 400 mg PO Q8H 03/07/23 hydroxyzine HCl 25 mg tablet 25 mg PO Q12H PRN 03/07/23 lactulose 10 gram/15 mL oral solution 15 ml PO DAILY 03/07/23 lidocaine 4 % topical patch (Lidocaine Pain Relief) 2 patch topical Q24H 03/07/23 nicotine 21 mg/24 hr daily transdermal patch 1 patch transdermal Q24H 03/07/23 oxycodone-acetaminophen 5 mg-325 mg tablet 1 tab PO Q6H PRN pain 03/07/23 potassium chloride 20 mEq tablet,extended release(part/cryst) 20 meq PO DAILY 03/07/23 rifaximin 550 mg tablet (Xifaxan) 550 mg PO DAILY 03/07/23 sodium bicarbonate 650 mg tablet 650 mg PO BID 03/07/23 spironolactone 100 mg tablet 150 mg PO DAILY 03/07/23 Hospital Course Operations None Summary of Care Provided Minutes Spent on Discharge: 45 Hospital Course: Patient is a 32-year-old female with past medical history as outlined was admitted through the ED on 03/07/2023 with a complaint of acute alcohol withdrawal. Patient said she had been drinking alcohol since she was about 19 and had relapse over the past 6 months prior to admission after she tried to maintain sobriety. This relapse was because of relationship breakdown. On admission urine tox was positive for benzodiazepines and cocaine and serum alcohol level was 280. She was also noted to have elevated bilirubin of 4.9 with elevated AST and ALT as well as ALP. She was admitted and managed for acute alcohol withdrawal. She was started on alcohol withdrawal protocol with buprenorphine. Liver enzymes subsequently started trending downward to bed. Patient did have a history of cirrhosis and followed up with a newcomer hostess at [facility]. He tolerated the 3-day detox process and was discharged home on 03/10/2023. She is to follow-up with her primary care doctor and follow-up with a newcomer hostess within 1 to 2 weeks. Patient seen and examined prior to discharge. She had no active complaints. She says she felt like her abdomen was slightly distended. She used to have r egular paracentesis in the past but had not had 1 in quite a while. Abdomen not distended enough to warrant paracentesis. Labs and vitals reviewed. Home medication reviewed and reconciled. Physical Exam Const alert, oriented x3 and no apparent distress General Appearance: cooperative, comfortable and well kempt HEENT normocephalic, head/scalp atraumatic, hearing grossly normal bilaterally, moist oral mucous membranes and oropharynx normal Mouth: oral and palatal mucosa normal Eyes PERRL and EOMs intact bilaterally Neck no lymphadenopathy and supple Lymph Lymphatic: no lymphadenopathy noted Resp normal respiratory effort, normal air movement and clear to auscultation bilaterally Cardio regular rate, regular rhythm, S1 normal heart sound, S2 normal heart sound and no murmurs GI GI Narrative: abdomen soft, nontender, no organomegaly. mild distension Extremity normal to inspection, full ROM, normal capillary refill, no clubbing, cyanosis or edema and no calf tenderness Skin no rashes or lesions noted Skin Narrative: mild jaundice. Neuro oriented x3, CN's II-XII intact bilaterally, moves all extremities, no focal motor deficits and no sensory deficits noted Motor Exam: strength 5/5 throughout and general weakness Psych thought process normal, cooperative and affect normal Appearance: appropriate Weight / BMI Weight Weight: 127 lb 13.89 oz Body Mass Index (BMI) 21.8 ABG / Lab / Microbiology Data 03/10/23 06:40 03/10/23 06:40 Laboratory: Laboratory Results - last 24 hr 03/10/23 06:40: WBC 4.5, RBC 3.12 L, Hgb 10.5 L, Hct 33.0 L, MCV 105.8 H, MCH 33.7 H, MCHC 31.8 L, RDW Std Deviation 48.5 H, RDW Coeff of Vandana 12.5, Plt Count 102 L, MPV 10.6, Immature Gran % (Auto) 0.400, Neut % (Auto) 61.5, Lymph % (Auto) 24.5, [place] % (Auto) 10.0, Eos % (Auto) 2.7, Baso % (Auto) 0.9, Absolute Neuts (auto) 2.8, Absolute Lymphs (auto) 1.10, Nucleated RBC % 0, Sodium 132 L, Potassium 4.2, Chloride 101, Carbon Dioxide 24.0, Anion Gap 7, BUN 16, Creatinine 1.20 H, Estim Creat Clear Calc 58.12, Est GFR (MDRD) Af Amer 67, Est GFR (MDRD) Non-Af 55 L, BUN/Creatinine Ratio 13.3, Glucose 84, Calcium 8.5, Total Bilirubin 3.30 H, AST 93 H, ALT 49, Alkaline Phosphatase 216 H, Total Protein 6.7, Albumin 2.5 L, Globulin 4.2, Albumin/Globulin Ratio 0.6 L D/C Instructions Discharge Diet: Low fat / Low cholesterol Weight Bearing Status: Weight bearing as tolerated Call your doctor if you observe: Fever of 101 or Higher, Shortness of breath, Swelling in the ankles, Chest pain and Increased palpitations (irregular heartbeat) Meaningful Use Info Meaningful Use Diagnoses (Choose all that apply): None applicable Discharge Plan Admission Admit Date/Time: 03/07/23 21:42 Primary Reason for Your Visit: acute alcohol withdrawal Attending Provider: Kait Flor Primary Care Provider: Care Physician,No Primary Consulting Providers: Martha Birch Instructions Patient Instructions: Alcohol Addiction, Alcohol Withdrawal: What to Expect, Addiction: Getting Help Additional Instructions / Restrictions: follow up with your newcomer hostess within 1-2 weeks Discharge Orders/Prescriptions Prescriptions: Continued lactulose 10 gram/15 mL solution 15 ml PO DAILY Patient Comments: take 15 milliliters by mouth once daily cephalexin 500 mg capsule 500 mg PO Q8H Patient Comments: take 1 capsule by mouth three times a day for 10 days chlordiazepoxide HCl 10 mg capsule 10 mg PO Q8H Patient Comments: TAKE 1 CAPSULE BY MOUTH THREE TIMES DAILY oxycodone-acetaminophen 5-325 mg tablet 1 tab PO Q6H PRN (Reason: pain) Patient Comments: take 1 tablet by mouth every 6 hours if needed for 7 days carvedilol 3.125 mg tablet 3.125 mg PO Q12H gabapentin 400 mg capsule 400 mg PO Q8H Patient Comments: take 1 capsule by mouth three times a day diclofenac sodium 75 mg tablet,delayed release (DR/EC) 75 mg PO Q12H Patient Comments: take 1 tablet by mouth twice a day if needed for 30 DAYS folic acid 1 mg tablet 1 mg feeding tube DAILY Patient Comments: take 1 tablet by mouth once daily Xifaxan 550 mg tablet 550 mg PO DAILY potassium chloride 20 mEq tablet,ER particles/crystals 20 meq PO DAILY Patient Comments: take 1 tablet by mouth once daily hydroxyzine HCl 25 mg tablet 25 mg PO Q12H PRN Patient Comments: take 1 tablet by mouth every 12 hours if needed spironolactone 100 mg tablet 150 mg PO DAILY Patient Comments: take 1 tablet by mouth once daily ALONG WITH 50MG STRENGTH furosemide 40 mg tablet 60 mg PO DAILY albuterol 90 mcg/actuation aerosol 90 mcg inhalation Q6H PRN (Reason: sob) lidocaine [Lidocaine Pain Relief] 4 % adhesive patch,medicated 2 patch TOPICAL Q24H Patient Comments: apply 2 patches to affected area once daily sodium bicarbonate 650 mg tablet 650 mg PO BID Patient Comments: take 1 tablet by mouth twice a day before meals nicotine 21 mg/24 hr patch 24 hour 1 patch transdermal Q24H Patient Comments: apply 1 patch to CLEAN, DRY, AND INTACT SKIN REMOVE AND REPLACE once daily Referrals / Follow Up: Kyle Loya MD [Med Staff - Active Staff] - Within 2 Weeks (see to establish PCP care) Care Physician,No Primary [Primary Care Provider] - Disposition Disposition (needs filled in before D/C Order can be placed): Home, Self Care Charges/Coding Visit Charges Inpatient E&M: 45999 Disch Hosp >30min
--- NOTE | 2023-03-10 13:12 | NURSING ---
attempting to find ride for pt home-mother can come but not until 6pm-assured that will be fine
== END 2023-03-10 13:55 | disposition home or self-care (01) | DRG 774 ==
LOC: ED 22:08 → MS3 03-08 00:02
PROVIDERS: Admitting Provider Family Medicine; Emergency Provider Emergency Medicine; Visit Provider Student in an Organized Health Care Education/Training Program
DX: F10.229 Alcohol dependence with intoxication, unspecified (principal); F14.90 Cocaine use, unspecified, uncomplicated; D69.6 Thrombocytopenia, unspecified; K70.10 Alcoholic hepatitis without ascites; K70.30 Alcoholic cirrhosis of liver without ascites; F19.19 Other psychoactive substance abuse with unspecified psychoactive substance-induced disorder; F10.239 Alcohol dependence with withdrawal, unspecified; D53.9 Nutritional anemia, unspecified; E87.6 Hypokalemia; F17.210 Nicotine dependence, cigarettes, uncomplicated; N28.9 Disorder of kidney and ureter, unspecified; R74.01 Elevation of levels of liver transaminase levels; Z79.899 Other long term (current) drug therapy; Y90.8 Blood alcohol level of 240 mg/100 ml or more
CPT/HCPCS: 36415; 80048; 80053; 80076; 80307; 81001; 81025; 82077; 82607; 82746; 83735; 84100; 85025; 85610; 99284; J7120; A4216